=== PATIENT | male | born 1995 | race African-American/Black ===

== ENCOUNTER 2021-09-06 17:36 | Emergency (ER) | payer BC ==
[~2021-09-06] VITALS: Ht 180.3 cm; Wt 90.7 kg
[2021-09-07 00:17] VITALS: BP 143/67
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
--- OUTSIDE RECORDS SUMMARY | 2021-09-07 01:18 | CCD ---
Author [facility] Address Unknown Phone Unavailable Support Name Relationship Address Phone BORDER PATROL Next Of Kin [id number] [place] [address] SHAUNA SETH Next Of Kin [id number] [place] [phone] Re-disclosure Warning The records that you are about to access may contain information from federally-assisted alcohol or drug abuse programs. If such information is present, then the following federally mandated warning applies: This information has been disclosed to you from records protected by federal confidentiality rules (42 CFR part 2). The federal rules prohibit you from making any further disclosure of this information unless further disclosure is expressly permitted by the written consent of the person to whom it pertains or as otherwise permitted by 42 CFR part 2. A general authorization for the release of medical or other information is NOT sufficient for this purpose. The Federal rules restrict any use of the information to criminally investigate or prosecute any alcohol or drug abuse patient.The records that you are about to access may contain highly sensitive health information, the redisclosure of which is protected by Article 27-F of the [facility] Public Health law. If you continue you may have access to information: Regarding HIV / AIDS; Provided by facilities licensed or operated by the [facility] Office of Mental Health; or Provided by the [facility] Office for People With Developmental Disabilities. If such information is present, then the following [facility] mandated warning applies: This information has been disclosed to you from confidential records which are protected by state law. State law prohibits you from making any further disclosure of this information without the specific written consent of the person to whom it pertains, or as otherwise permitted by law. Any unauthorized further disclosure in violation of state law may result in a fine or custodial sentence or both. A general authorization for the release of medical or other information is NOT sufficient authorization for further disc losure. Encounters Encounter Providers Location Date Indications Data Source(s ) Outpatient 08/29/2021 02:41:40 PM EST - 021 02:58:26 PM EST [facility] ([facility]) Medications No Information Insurance Providers Payer name Policy type / Coverage type Policy ID Covered democrat ID Covered democrat's relationship to estrada Policy [employer] Plan Information [employer] - [place] [employer] Shield [id number] Self [id number] [facility] [employer] [id number] SP [id number] Problems, Conditions, and Diagnoses No Information Surgeries/Procedures No Information Results ID Date Data Source [id number] 08/29/2021 03:00:00 PM EST [facility] Name Value Range Interpretation Code Description Data Yudi rce(s) Supporting Document(s) SARS-CoV-2 RNA Resp Ql MICHAEL+probe NOT DETECTED [facility] This lab was ordered by LASHAY johnson and reported by LASHAY Hinton. ID Date Data Source [id number] 02/22/2021 12:00:00 AM EDT [facility] Name Value Range Interpretation Code Description Data Yudi rce(s) Supporting Document(s) SARS-COV-2 Negative [facility] This lab was ordered by Lin and re ported by Lin. Procedure Social History No Information
== END 2021-09-07 01:32 | disposition home or self-care (01) ==
LOC: M ED 17:36
DX: Z04.1 Encounter for examination and observation following transport accident (principal); M54.2 Cervicalgia; J45.909 Unspecified asthma, uncomplicated